=== PATIENT | male | born 1960 | race Caucasian/White ===

== ENCOUNTER 2018-10-28 04:34 | Emergency (ER) | payer BC ==
--- NOTE | 2018-10-28 04:38 | ED ---
General Adult HPI - General Stated complaint: Fall Time Seen by Provider: 10/28/18 04:38 - History of Present Illness Initial comments: Carmelo is a pleasant 57-year-old gentleman who presents to the emergency department today for evaluation of fall with loss of consciousness. Patient reports that after work and his friends were drinking heavily. When asked how much she had to drink he says several. Patient reports he apparently tripped and fell down the stairs. He believes he went headfirst. Bystanders said that he went headfirst and was unconscious for 4 minutes. EMS arrived on scene the patient was awake and somewhat confused, admittedly intoxicated but was ambulatory complaining only of a headache and pain in his left great toe. - Related Data Home Medications Medication Instructions Recorded Confirmed No Known Home Medications 10/28/18 10/28/18 Allergies Allergy/AdvReac Type Severity Reaction Status Date / Time No Known Allergies Allergy Verified 10/28/18 04:40 Review of Systems ROS Statement: Those systems with pertinent positive or pertinent negative responses have been documented in the HPI. ROS Other: All systems not noted in ROS Statement are negative. General Exam - General Exam Comments Initial Comments: Physical Exam GENERAL: Patient is well-developed and well-nourished. Patient is nontoxic and well-hydrated and is in no distress. Patient is resting with his eyes closed but is awake, responds appropriately to voice HENT: Normocephalic, Atraumatic. Normal TMs bilaterally no hemotympanum Blood in the nares or oropharynx No severino signs no raccoon eyes EYES: PERRL, EOMI PULMONARY: Unlabored respirations. No audible rales rhonchi or wheezing was noted. CARDIOVASCULAR: There is a regular rate and rhythm without any murmurs gallops or rubs. ABDOMEN: Soft and nontender with normal bowel sounds. SKIN: Skin is clear with no lesions or rashes and otherwise unremarkable. Abrasion to left great toe : Deferred NEUROLOGIC: Patient is alert and oriented x3. Moving all extremities spontaneously MUSCULOSKELETAL: Normal extremities with adequate strength and full range of motion. No lower extremity swelling or edema. No calf tenderness. PSYCHIATRIC: Normal psychiatric evaluation. Course Vital Signs 10/28/18 10/28/18 04:36 06:06 Temperature 97.4 F L 98.1 F Pulse Rate 57 L 64 Respiratory 18 20 Rate Blood Pressure 131/82 113/69 O2 Sat by Pulse 99 98 Oximetry EKG Findings - EKG Comments: EKG Findings:: EKG was obtained as part of the trauma workup, EKG was obtained at 4:52 AM, rate is 58 rhythm is sinus bradycardia there is normal axis are normal intervals there's no acute ST elevations or depressions no evidence of acute ischemia or infarction. Medical Decision Making - Medical Decision Making The patient was seen and evaluated upon arrival emergency department. This is a 57-year-old gentleman on no antiplatelet or anticoagulant medications at a mechanical trip and fall after drinking significant amount of alcohol. Patient prolonged loss of consciousness per admittedly intoxicated bystanders. Upon arrival patient's ABCs are intact Secondary survey reveals only a abrasion to the left toe Labs and imaging were initiated Labs with no significant abnormalities patient's alcohol is significantly elevated CT scan of the brain confirms a left-sided subdural hematoma measuring 5 mm with no midline shift Patient care was discussed with Dr. Sabine Ndiaye who accepts the transfer for evaluation by trauma team and neurosurgery was updated on findings. Patient remains awake resting with his eyes closed. Patient remains oriented with no focal neurologic deficits or altered mental status. - Lab Data Result diagrams: 10/28/18 05:04 10/28/18 05:04 Lab Results 10/28/18 10/28/18 10/28/18 Range/Units 05:04 05:04 05:04 WBC 5.9 (3.8-10.6) k/uL RBC 4.27 L (4.30-5.90) m/uL Hgb 13.6 (13.0-17.5) gm/dL Hct 39.3 (39.0-53.0) % MCV 92.2 (80.0-100.0) fL MCH 31.8 (25.0-35.0) pg MCHC 34.5 (31.0-37.0) g/dL RDW 14.3 (11.5-15.5) % Plt Count 153 (150-450) k/uL Neutrophils % 60 % Lymphocytes % 31 % Monocytes % 4 % Eosinophils % 3 % Basophils % 1 % Neutrophils # 3.5 (1.3-7.7) k/uL Lymphocytes # 1.8 (1.0-4.8) k/uL Monocytes # 0.2 (0-1.0) k/uL Eosinophils # 0.2 (0-0.7) k/uL Basophils # 0.1 (0-0.2) k/uL PT 10.5 (9.0-12.0) sec INR 1.0 (<1.2) APTT 26.6 (22.0-30.0) sec Sodium 140 (137-145) mmol/L Potassium 3.7 (3.5-5.1) mmol/L Chloride 101 (98-107) mmol/L Carbon Dioxide 28 (22-30) mmol/L Anion Gap 11 mmol/L BUN 13 (9-20) mg/dL Creatinine 0.83 (0.66-1.25) mg/dL Est GFR (CKD-EPI)AfAm >90 (>60 ml/min/1.73 sqM) Est GFR (CKD-EPI)NonAf >90 (>60 ml/min/1.73 sqM) Glucose 104 H (74-99) mg/dL Calcium 8.7 (8.4-10.2) mg/dL Total Bilirubin 0.4 (0.2-1.3) mg/dL AST 30 (17-59) U/L ALT 31 (21-72) U/L Alkaline Phosphatase 65 (38-126) U/L Troponin I (0.000-0.034) ng/mL Total Protein 6.5 (6.3-8.2) g/dL Albumin 4.1 (3.5-5.0) g/dL Serum Alcohol 237 H* mg/dL Blood Type Blood Type Confirm Blood Type Recheck Bld Type Recheck Status Antibody Screen Spec Expiration Date 10/28/18 10/28/18 10/28/18 Range/Units 05:04 05:04 05:18 WBC (3.8-10.6) k/uL RBC (4.30-5.90) m/uL Hgb (13.0-17.5) gm/dL Hct (39.0-53.0) % MCV (80.0-100.0) fL MCH (25.0-35.0) pg MCHC (31.0-37.0) g/dL RDW (11.5-15.5) % Plt Count (150-450) k/uL Neutrophils % % Lymphocytes % % Monocytes % % Eosinophils % % Basophils % % Neutrophils # (1.3-7.7) k/uL Lymphocytes # (1.0-4.8) k/uL Monocytes # (0-1.0) k/uL Eosinophils # (0-0.7) k/uL Basophils # (0-0.2) k/uL PT (9.0-12.0) sec INR (<1.2) APTT (22.0-30.0) sec Sodium (137-145) mmol/L Potassium (3.5-5.1) mmol/L Chloride (98-107) mmol/L Carbon Dioxide (22-30) mmol/L Anion Gap mmol/L BUN (9-20) mg/dL Creatinine (0.66-1.25) mg/dL Est GFR (CKD-EPI)AfAm (>60 ml/min/1.73 sqM) Est GFR (CKD-EPI)NonAf (>60 ml/min/1.73 sqM) Glucose (74-99) mg/dL Calcium (8.4-10.2) mg/dL Total Bilirubin (0.2-1.3) mg/dL AST (17-59) U/L ALT (21-72) U/L Alkaline Phosphatase (38-126) U/L Troponin I <0.012 (0.000-0.034) ng/mL Total Protein (6.3-8.2) g/dL Albumin (3.5-5.0) g/dL Serum Alcohol mg/dL Blood Type O Negative Blood Type Confirm O Negative Blood Type Recheck No Previous Record Bld Type Recheck Status CABO Indicated Antibody Screen NEGATIVE Spec Expiration Date 10/31/20182303 Critical Care Time Critical Care Time: Yes Total Critical Care Time: 30 Critical Care Time: Critical Care Time Critical care time was exclusive of separately billable procedures and treating other patients and teaching time. Critical care was necessary to treat or prevent imminent or life-threatening deterioration. Given the critical condition in which the patient arrived, the patient was immediately assessed by myself and the nurse, and cardiac monitoring initiated due to the potential for rapid decompensation of the patient's clinical condition. During the course of the patients stay, I spent a considerable amount of time at the bedside performing serial re-evaluations of the patient's hemodynamic and clinical status because of the recognized potential threat to life or limb in this condition. I then had a chance to review not only all of t he available current laboratory and radiographic studies obtained today, but I also reviewed old records available to me at the time. 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 Sequential vital signs were obtained. Disposition Clinical Impression: Fall, Subdural bleeding, Traumatic subdural hematoma with brief loss of consciousness, Alcohol intoxication Disposition: OTHER INSTITUTION NOT DEFINED Condition: Serious Referrals: None,Stated [REFERRING] - 1-2 days - Out of Hospital Transfer - Req. Specs Out of Hospital Transfer - Requested Specifics: Other Emergency Center ([facility])
[2018-10-28 05:13] LABS: Basophils # (A) 0.1 k/uL (0-0.2); Basophils % (A) 1 %; Eosinophils # (A) 0.2 k/uL (0-0.7); Eosinophils % (A) 3 %; HCT 39.3 % (39.0-53.0); HGB 13.6 gm/dL (13.0-17.5); Lymphocytes # (A) 1.8 k/uL (1.0-4.8); Lymphocytes % (A) 31 %; MCH 31.8 pg (25.0-35.0); MCHC 34.5 g/dL (31.0-37.0); MCV 92.2 fL (80.0-100.0); Mean Platelet Volume 7.9; Monocytes # (A) 0.2 k/uL (0-1.0); Monocytes % (A) 4 %; Neutrophils # (A) 3.5 k/uL (1.3-7.7); Neutrophils % (A) 60 %; Platelet Count 153 k/uL (150-450); RBC 4.27 m/uL (4.30-5.90); RDW 14.3 % (11.5-15.5); WBC 5.9 k/uL (3.8-10.6)
[2018-10-28 05:22] LABS: Partial Thromboplastin Time 26.6 sec (22.0-30.0); Prothrombin Time 10.5 sec (9.0-12.0)
[2018-10-28 05:26] LABS: ALT 31 U/L (21-72); AST 30 U/L (17-59); African American GFR (CKD) >90 (>60 ml/min/1.73 sqM); Albumin 4.1 g/dL (3.5-5.0); Alkaline Phosphatase 65 U/L (38-126); Anion Gap 11 mmol/L; Blood Urea Nitrogen 13 mg/dL (9-20); Calcium 8.7 mg/dL (8.4-10.2); Carbon Dioxide 28 mmol/L (22-30); Chloride 101 mmol/L (98-107); Glucose 104 mg/dL (74-99); Potassium 3.7 mmol/L (3.5-5.1); Sodium 140 mmol/L (137-145); Total Bilirubin 0.4 mg/dL (0.2-1.3); Total Protein 6.5 g/dL (6.3-8.2)
[2018-10-28 05:27] LABS: Alcohol 237 mg/dL
--- NOTE | 2018-10-28 05:51 | CT ---
EXAM: CT Head Without Intravenous Contrast CLINICAL HISTORY: ITS.REASON CT Reason: trauma fall with LOC TECHNIQUE: Axial computed tomography images of the head/brain without intravenous contrast. CTDI is 45.2 mGy and DLP is 1052 mGy-cm. This CT exam was performed using one or more of the following dose reduction techniques: automated exposure control, adjustment of the mA and/or kV according to patient size, and/or use of iterative reconstruction technique. Coronal and sagittal reformatted images were created and reviewed. COMPARISON: No relevant prior studies available. FINDINGS: Brain: 5 mm layer of subdural hemorrhage over left parietal and frontal lobe. 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 Ventricles: Unremarkable. No ventriculomegaly. Bones/joints: Unremarkable. No acute fracture. Soft tissues: Mild to moderate left parietal scalp swelling near the vertex. Sinuses: Mild sinus disease. Mastoid air cells: Unremarkable as visualized. No mastoid effusion. IMPRESSION: 5 mm layer of subdural hemorrhage over left parietal and frontal lobe. No skull fracture. EXAM: CT Cervical Spine Without Intravenous Contrast CLINICAL HISTORY: ITS.REASON CT Reason: trauma fall with LOC TECHNIQUE: Axial computed tomography images of the cervical spine without intravenous contrast. CTDI is 18.5 mGy and DLP is 547.1 mGy-cm. This CT exam was performed using one or more of the following dose reduction techniques: automated exposure control, adjustment of the mA and/or kV according to patient size, and/or use of iterative reconstruction technique. Coronal and sagittal reformatted images were created and reviewed. COMPARISON: No relevant prior studies available. FINDINGS: Vertebrae: Unremarkable. No acute fracture. Discs/spinal canal/neural foramina: Moderate degenerative disc disease. No spinal canal stenosis. Soft tissues: Unremarkable. IMPRESSION: No fracture or subluxation. <MYCVCSECTION> Critical Value Communications 10/28/18 05:55 Call Doctor Regarding Intracranial Hemorrhage, called MD Lozano on 10/28 05:54 (-04:00)
[2018-10-28 06:07] VITALS: BP 113/69; PULSE 64; RESP 20; TEMP 98.1
--- NOTE | 2018-10-28 06:29 | XR ---
EXAM: XR Chest, 1 View CLINICAL HISTORY: trauma TECHNIQUE: Frontal view of the chest. COMPARISON: No relevant prior studies available. FINDINGS: Lungs: Unremarkable. No consolidation. Pleural space: Unremarkable. No pneumothorax. Heart: Unremarkable. No cardiomegaly. Mediastinum: Unremarkable. Bones/joints: Unremarkable. IMPRESSION: No acute findings
--- NOTE | 2018-10-28 06:30 | XR ---
EXAM: XR Pelvis, 1 View CLINICAL HISTORY: Trauma TECHNIQUE: Frontal view of the pelvis. COMPARISON: No relevant prior studies available. FINDINGS: Bones/joints: Mild degenerative disc disease in the visualized lower lumbar spine. No acute fracture. No dislocation. Soft tissues: Unremarkable. IMPRESSION: No acute fracture.
== END 2018-10-28 07:25 | disposition other institution (70) ==
LOC: EC 04:34
DX: S06.5X1A Traumatic subdural hemorrhage with loss of consciousness of 30 minutes or less, initial encounter (principal); S90.415A Abrasion, left lesser toe(s), initial encounter; F10.129 Alcohol abuse with intoxication, unspecified; W10.9XXA Fall (on) (from) unspecified stairs and steps, initial encounter; Y92.009 Unspecified place in unspecified non-institutional (private) residence as the place of occurrence of the external cause
CPT/HCPCS: 36415; 70450; 71045; 72125; 72170; 80053; 80320; 84484; 85025; 85610; 85730; 86850; 86900; 86901; 93005; 99291